=== PATIENT | female | born 1985 | race Hispanic/Latino ===

== ENCOUNTER 2018-02-04 23:13 | Emergency (ER) | payer OTHER ==
[2018-02-04] MEDS ORDERED: ALBUTEROL 2.5 MG/3 ML NEB SOL ONE (23:26)
[2018-02-04] MEDS ORDERED: IPRATROPIUM BROM 0.5MG/2.5ML ONE (23:27)
[2018-02-04] MEDS ORDERED: MAGNESIUM SULFATE 1 gm IVPB 1 GM/100 ML BAG IV ONE (23:56)
[2018-02-05 01:37] LABS: Absolute Lymphocytes (CBC) 3.8 K/uL (0.7-4.9); Absolute Monocytes 0.9 K/uL (0.1-1.3); Absolute Neutrophil 4.8 K/uL (1.8-8.0); Basophils % 0.5 % (0-1.3); Eosinophils % 0.5 % (0-4.4); Hematocrit 41.1 % (36.0-45.0); Lymphocytes % 39.5 % (15.3-44.8); MCH 31.6 pg (27.0-35.0); MCV 92.7 fL (80-100); MPV 11.2 fL (7.6-11.3); Monocytes % 9.2 % (3.3-12.3); RBC Red Blood Cell Count 4.44 M/uL (3.86-4.86)
[2018-02-05 01:46] LABS: Glucose Level 79 mg/dL (65-120)
[2018-02-05 01:52] LABS: ALT/SGPT 14 IU/L (10-60); AST/SGOT 20 IU/L (10-42); Albumin 4.4 g/dL (3.2-5.5); Alkaline Phosphatase 67 IU/L (42-121); BUN Blood Urea Nitrogen 11 mg/dL (6-20); Bilirubin Direct 0.1 mg/dL (0-0.2); Bilirubin Total 0.6 mg/dL (0.3-1.2); Magnesium 1.9 mg/dL (1.8-2.5); Protein, Total 7.4 g/dL (6.0-8.3)
[2018-02-05 01:58] LABS: Bicarbonate 26 mEq/L (21-31); Sodium Level 139 mEq/L (135-145)
[2018-02-05] MEDS ORDERED: HYDROCODONE/CHLORPHEN 5 ML/OSYR ONE (02:19)
[2018-02-05] MEDS ORDERED: POTASSIUM 25 MEQ EFFERV TAB ONE (02:19)
[2018-02-05 02:29] LABS: Urine Blood 3+ (NEG); Urine Glucose NEGATIVE (NEG); Urine Protein NEGATIVE (NEG); Urine Specific Gravity 1.015 (1.005-1.030); Urine pH 6.5 (5.0-7.0)
[2018-02-05] MEDS ORDERED: METHYLPREDNISOLONE 125 MG INJ ONE (03:28)
[2018-02-05] MEDS ORDERED: NA CHLORIDE 0.9% 1,000 ML ONE (03:28)
--- NOTE | 2018-02-05 04:21 | ER ---
Nurse's Notes [facility] Name: Rosmery Lowry Age: 32 yrs Sex: Female : 1985 Arrival Date: 02/04/2018 Time: 23:14 Bed 5 Private MD: Diagnosis: Cough;Shortness of breath Presentation: 02/04 23:32 Presenting complaint: Patient states: Patient states she has had a cough and shortness tl1 of breath for approx 2 weeks. Was recently prescribed prednisone, proair, and cough syrup with codeine. Pt states she feels short of breath when she coughs. Transition of care: patient was not received from another setting of care. Onset of symptoms was January 22, 2018. Risk Assessment: Do you want to hurt yourself or someone else? Patient reports no desire to harm self or others. Initial Sepsis Screen: Does the patient meet any 2 criteria? No. Patient's initial sepsis screen is negative. Does the patient have a suspected source of infection? No. Patient's initial sepsis screen is negative. Care prior to arrival: Medication(s) given:. 23:32 Method Of Arrival: Ambulatory tl1 23:32 Acuity: CARON 3 tl1 Triage Assessment: 02/05 04:17 Respiratory: Onset: The symptoms/episode began/occurred gradually. 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 - Social history:: Smoking status: Patient/guardian denies using tobacco, never smoked. - Ebola Screening: : Patient negative for fever greater than or equal to 101.5 degrees Fahrenheit, and additional compatible Ebola Virus Disease symptoms Patient denies exposure to infectious person Patient denies travel to an Ebola-affected area in the 21 days before illness onset. Screenin/11 04:16 Abuse screen: Denies threats or abuse. Denies injuries from another. Nutritional tl2 screening: No deficits noted. Tuberculosis screening: No symptoms or risk factors identified. Fall Risk IV access (20 points). Assessment: 00:01 General: Appears in no apparent distress. Behavior is calm, cooperative, appropriate tl1 for age. Pain: Denies pain. Neuro: Level of Consciousness is awake, alert, obeys commands, Oriented to person, place, time, situation. Cardiovascular: Denies chest pain, Rhythm is regular. Respiratory: Reports shortness of breath on exertion with cough cough that is productive, Airway is patent Trachea midline Respiratory effort is even, unlabored, Breath sounds with wheezes bilaterally. the patient has mild shortness of breath. GI: Abdomen is flat, Bowel sounds present X 4 quads. Abd is soft and non tender X 4 quads. Patient currently denies abdominal pain. : No signs and/or symptoms were reported regarding the genitourinary system. EENT: No signs and/or symptoms were reported regarding the EENT system. Derm: No signs and/or symptoms reported regarding the dermatologic system. 04:16 Reassessment: Patient and/or family updated on plan of care and expected duration. Pain tl2 level reassessed. Patient is alert, oriented x 3, equal unlabored respirations, skin warm/dry/pink. Patient states feeling better. Patient states symptoms have improved. Respiratory: Reports cough that is persistent Airway is patent Trachea midline Respiratory effort is even, unlabored, Breath sounds are clear bilaterally. Vital Signs: 02/04 23:26 BP 119 / 90; Pulse 91; Resp 20; Temp 98.7; Pulse Ox 98% on R/A; Weight 52.16 kg (R); mt Height 5 ft. 2 in. (157.48 cm) (R); 02/05 00:09 BP 111 / 97; Pulse 110; Resp 20; Pulse Ox 100% on R/A; mt 00:32 BP 105 / 53; Pulse 100; Resp 17; Pulse Ox 99% on R/A; Pain 0/10; tl1 01:04 BP 102 / 56; Pulse 84; Resp 18; Pulse Ox 100% on R/A; tl2 01:51 BP 93 / 57; Pulse 72; Resp 18; Pulse Ox 99% on R/A; mt 02:22 BP 122 / 81; Pulse 68; Resp 20; Pulse Ox 99% on R/A; Pain 0/10; tl1 03:10 BP 98 / 56; Pulse 79; Resp 16; Pulse Ox 100% on R/A; Pain 0/10; tl1 04:20 BP 108 / 67; Pulse 77; Resp 16; Temp 98.6; Pulse Ox 98% on R/A; Pain 0/10; tl2 02/04 23:26 Body Mass Index 21.03 (52.16 kg, 157.48 cm) mn ED Course: 02/04 23:14 Patient arrived in ED. am2 23:21 Joaquin Thornton PA is PHCP. cp 23:21 Claudio Todd MD is Attending Physician. cp 23:30 Inserted saline lock: 22 gauge in right antecubital area, using aseptic technique. tl1 Blood collected. 23:32 Mary Jones, DOMINIK is Primary Nurse. tl1 23:35 Triage completed. tl1 23:36 Arm band placed on right wrist. EKG completed in triage. Results shown to MD. tl1 23:48 X-ray completed. Portable x-ray completed in exam room. Patient tolerated procedure kw well. 23:49 XRAY Chest (1 view) In Process Unspecified. EDMS 02/05 00:00 Patient has correct armband on for positive identification. Placed in gown. Bed in low tl2 position. Call light in reach. Side rails up X 1. Adult w/ patient. 00:03 No provider procedures requiring assistance completed. tl1 03:26 Robb Gómez MD is Referral Physician. cp 04:08 CT Chest For PE Angio: elevated d-dimer, back pain In Process Unspecified. EDMS 04:17 CT completed. Patient tolerated procedure well. Patient moved to CT via wheelchair. Patient moved back from CT. 04:17 IV discontinued, intact, bleeding controlled, No redness/swelling at site. Pressure tl2 dressing applied. Administered Medications: 02/04 23:32 Drug: Albuterol - atroVENT (3:1) (2.5 mg - 0.5 mg) 3 ml Route: Nebulizer; tl1 02/05 04:19 Follow up: Response: No adverse reaction; Marked relief of symptoms tl2 00:01 Drug: Magnesium Sulfate 1 grams Route: IVPB; Infused Over: 1 hrs; Site: right tl1 antecubital; 03:30 Follow up: IV Status: Completed infusion tl2 02:21 Drug: Potassium Effervescent Tablet 50 mEq Route: PO; tl1 04:19 Follow up: Response: No adverse reaction; No change in condition tl2 02:21 Drug: Tussionex Pennkinetic ER 5 ml Route: PO; tl1 04:19 Follow up: Response: No adverse reaction; Marked relief of symptoms tl2 03:57 Drug: SOLU-Medrol 80 mg Route: IVP; Site: right antecubital; tl1 04:18 Follow up: Response: No adverse reaction; Marked relief of symptoms tl2 03:57 Drug: NS 0.9% 1000 ml Route: IV; Rate: 1 bolus; Site: right antecubital; tl1 04:18 Follow up: IV Status: Completed infusion tl2 Outcome: 03:26 Discharge ordered by MD. cp 04:17 Discharged to home ambulatory, with family. tl2 04:17 Condition: improved 04:17 Discharge instructions given to patient, family, Instructed on discharge instructions, follow up and referral plans. medication usage, Demonstrated understanding of instructions, follow-up care, medications, Prescriptions given X 4. 04:20 Patient left the ED. tl2 Signatures: Dispatcher [employer] EDMS Eliseo Albrecht Kimberlee kw Lasagna, Tonya, RN RN tl1 Joaquin Thornton PA PA cp Knox, Taylor, RN RN tl2 Arabella Bunch Moriah mt
--- NOTE | 2018-02-05 04:22 | EDPHYS ---
Physician Documentation [facility] Name: Rosmery Lowry Age: 32 yrs Sex: Female : 1985 Arrival Date: 02/04/2018 Time: 23:14 Bed 5 Private MD: ED Physician Claudio Todd HPI: 02/04 23:32 This 32 yrs old Female presents to ER via Unassigned with complaints of Cough, cp Breathing Difficulty. 23:32 The patient or guardian reports cough, that is constant, difficulty breathing. cp 23:32 Onset: The symptoms/episode began/occurred 2 week(s) ago. Severity of symptoms: in the cp emergency department the symptoms are actually worse, moderately. Associated signs and symptoms: Pertinent positives: back pain, Pertinent negatives: fever, sore throat, vomiting. 23:34 The patient has been recently seen at an urgent care, last week, for similar cp complaints, prescribed inhaler, oral steroids, and cough syrup. 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 - Social history:: Smoking status: Patient/guardian denies using tobacco, never smoked. - Ebola Screening: : Patient negative for fever greater than or equal to 101.5 degrees Fahrenheit, and additional compatible Ebola Virus Disease symptoms Patient denies exposure to infectious person Patient denies travel to an Ebola-affected area in the 21 days before illness onset. ROS: 23:35 Constitutional: Negative for body aches, chills, fever, poor PO intake. cp 23:35 Eyes: Negative for injury, pain, redness, and discharge. cp 23:35 ENT: Negative for drainage from ear(s), ear pain, sore throat, difficulty swallowing, difficulty handling secretions. 23:35 Neck: Negative for pain with movement, pain at rest, stiffness, tenderness. 23:35 Cardiovascular: Negative for edema, palpitations. 23:35 Respiratory: Positive for cough, "sounds productive", shortness of breath, Negative for hemoptysis. 23:35 Abdomen/GI: Negative for abdominal pain, nausea, vomiting, and diarrhea, black/tarry stool, rectal bleeding. 23:35 Back: Positive for pain at rest. 23:35 Skin: Negative for cellulitis, diaphoresis, rash. 23:35 Neuro: Negative for altered mental status, headache, syncope, near syncope, weakness. 23:35 All other systems are negative. Exam: 23:40 Constitutional: The patient appears in no acute distress, alert, awake, cp non-diaphoretic, non-toxic, well developed, well nourished. 23:40 Head/Face: Normocephalic, atraumatic. Eyes: Pupils equal round and reactive to light, cp extra-ocular motions intact. Lids and lashes normal. Conjunctiva and sclera are non-icteric and not injected. Cornea within normal limits. Periorbital areas with no swelling, redness, or edema. 23:40 ENT: External ear(s): are unremarkable, Ear canal(s): are normal, clear, TM's: dullness, bilaterally, Nose: is normal, Mouth: Lips: moist, Oral mucosa: pink and intact, moist, Posterior pharynx: is normal, airway is patent, no erythema, no exudate. 23:40 Neck: ROM/movement: is normal, is supple, without pain, no range of motions limitations, no meningismus, no nuchal rigidity, Lymph nodes: no appreciated lymphadenopathy. 23:40 Chest/axilla: Inspection: normal, Palpation: is normal, no crepitus, no tenderness. 23:40 Cardiovascular: Rate: normal, Rhythm: regular, Heart sounds: murmur, not appreciated, rub, not appreciated, gallop, not appreciated, Edema: is not appreciated, JVD: is not appreciated. 23:40 Respiratory: the patient does not display signs of respiratory distress, Respirations: labored breathing, that is mild, splinting, is not noted, Breath sounds: bronchial sounds, that are moderate, are heard diffusely, decreased breath sounds, that are mild, throughout, stridor, is not appreciated, wheezing: that is mild, is heard diffusely. 23:40 Abdomen/GI: Inspection: abdomen appears normal, Bowel sounds: active, all quadrants, Palpation: abdomen is soft and non-tender, in all quadrants, rebound tenderness, is not appreciated, voluntary guarding, is not appreciated, involuntary guarding, is not appreciated. 23:40 Back: pain, that is mild, of the diffuse, ROM is normal. 23:40 Musculoskeletal/extremity: Exam is negative for bony tenderness, calf tenderness, injury. 23:40 Skin: cellulitis, is not appreciated, no rash present. 23:40 Neuro: Orientation: to person, place \\T\\ time. Mentation: lucid, able to follow commands, Cerebellar function: is grossly normal, Motor: moves all fours, strength is normal, Sensation: is normal, Gait: is steady. 23:42 ECG was reviewed by the Attending Physician. Vital Signs: 23:26 BP 119 / 90; Pulse 91; Resp 20; Temp 98.7; Pulse Ox 98% on R/A; Weight 52.16 kg (R); mt Height 5 ft. 2 in. (157.48 cm) (R); 02/05 00:09 BP 111 / 97; Pulse 110; Resp 20; Pulse Ox 100% on R/A; mt 00:32 BP 105 / 53; Pulse 100; Resp 17; Pulse Ox 99% on R/A; Pain 0/10; tl1 01:04 BP 102 / 56; Pulse 84; Resp 18; Pulse Ox 100% on R/A; tl2 01:51 BP 93 / 57; Pulse 72; Resp 18; Pulse Ox 99% on R/A; mt 02:22 BP 122 / 81; Pulse 68; Resp 20; Pulse Ox 99% on R/A; Pain 0/10; tl1 03:10 BP 98 / 56; Pulse 79; Resp 16; Pulse Ox 100% on R/A; Pain 0/10; tl1 04:20 BP 108 / 67; Pulse 77; Resp 16; Temp 98.6; Pulse Ox 98% on R/A; Pain 0/10; tl2 02/04 23:26 Body Mass Index 21.03 (52.16 kg, 157.48 cm) de MDM: 02/04 23:24 Patient medically screened. cp 02/05 00:00 Differential Diagnosis: Bronchitis Influenza Otitis Media Viral Syndrome Pneumonia cp Other pulmonary embolism, pulmonary edema. 03:25 Data reviewed: vital signs, nurses notes, lab test result(s), EKG, radiologic studies, cp CT scan, and as a result, I will discharge patient. 03:25 Test interpretation: by ED physician or midlevel provider: ECG. 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 03:25 ED course: VSS. Cough and shortness of breath symptoms improved. Will discharge to home cp for continued monitroing. 02/04 23:26 Order name: Basic Metabolic Panel; Complete Time: 01:58 02/05 01:59 Interpretation: Normal except: K 3.0. cp 02/04 23:26 Order name: BNP; Complete Time: :58 cp 02/04 23:26 Order name: CBC with Diff; Complete Time: :58 cp 02/04 23:26 Order name: LFT's; Complete Time: :58 cp 02/04 23:26 Order name: Magnesium; Complete Time: :58 cp 02/04 23:26 Order name: Troponin (emerg Dept Use Only); Complete Time: 01:58 cp 02/04 23:26 Order name: XRAY Chest (1 view) 02/04 23:26 Order name: D-Dimer; Complete Time: :58 cp 02/05 02:01 Order name: CT Chest For PE Angio: elevated d-dimer, back pain 02/05 02:12 Order name: Urine Dipstick--Ancillary (enter results); Complete Time: 02:35 2 02/05 02:35 Interpretation: Normal except: UBLD 3+; UESTR TRACE. cp 02/05 02:12 Order name: Urine --Ancillary (enter results); Complete Time: 02:35 2 02/04 23:26 Order name: Urine Test (obtain specimen); Complete Time: 01:59 cp 02/04 23:26 Order name: EKG; Complete Time: 23:26 cp 02/04 23:26 Order name: Cardiac monitoring; Complete Time: 23:34 cp 02/04 23:26 Order name: EKG - Nurse/Tech; Complete Time: 23:34 cp 02/04 23:26 Order name: IV Saline Lock; Complete Time: 23:34 cp 02/04 23:26 Order name: Labs collected and sent; Complete Time: 23:34 cp 02/04 23:26 Order name: O2 Per Protocol; Complete Time: 23:34 cp 02/04 23:26 Order name: O2 Sat Monitoring; Complete Time: 23:34 cp 02/04 23:26 Order name: Urine Dipstick-Ancillary (obtain specimen); Complete Time: 01:59 cp EC/10 23:42 Rate is 66 beats/min. Rhythm is regular. [place] interval is shortened at 110 msec. QRS cp interval is normal. QT interval is normal. No ST changes noted. Interpreted by me. Reviewed by me. Administered Medications: 23:32 Drug: Albuterol - atroVENT (3:1) (2.5 mg - 0.5 mg) 3 ml Route: Nebulizer; tl1 02/05 04:19 Follow up: Response: No adverse reaction; Marked relief of symptoms tl2 00:01 Drug: Magnesium Sulfate 1 grams Route: IVPB; Infused Over: 1 hrs; Site: right tl1 antecubital; 03:30 Follow up: IV Status: Completed infusion tl2 02:21 Drug: Potassium Effervescent Tablet 50 mEq Route: PO; tl1 04:19 Follow up: Response: No adverse reaction; No change in condition tl2 02:21 Drug: Tussionex Pennkinetic ER 5 ml Route: PO; tl1 04:19 Follow up: Response: No adverse reaction; Marked relief of symptoms tl2 03:57 Drug: SOLU-Medrol 80 mg Route: IVP; Site: right antecubital; tl1 04:18 Follow up: Response: No adverse reaction; Marked relief of symptoms tl2 03:57 Drug: NS 0.9% 1000 ml Route: IV; Rate: 1 bolus; Site: right antecubital; tl1 04:18 Follow up: IV Status: Completed infusion tl2 Disposition: 04:09 Co-signature as Attending Physician, Claudio Todd MD. pkl Disposition: 02/05/18 03:26 Discharged to Home. Impression: Cough, Shortness of breath. - Condition is Stable. - Discharge Instructions: Cool Mist Vaporizers, Cough, Adult. - Prescriptions for Medrol (Ranulfo) 4 mg Oral Tablets, Dose Pack - take 1 tablet by ORAL route as directed - follow package instructions; 1 packet. Albuterol Sulfate 90 mcg/actuation - inhale 1-2 puff by INHALATION route every 4-6 hours; 1 Inhaler. Potassium Chloride 10 mEq Oral Capsule, Sustained Release - take 1 tablet by ORAL route every 12 hours for 3 days; 6 tablet. Zithromax Z- Ranulfo 250 mg Oral Tablet - take 1 tablet by ORAL route as directed for 5 days Day 1 - take two (2) tablets one time. Day 2, 3, 4 , 5 take one (1) tablet once daily.; 6 tablet. - Work release form, Medication Reconciliation Form, Thank You Letter, Antibiotic Education, Prescription Opioid Use form. - Follow up: Robb Gómez MD; When: 1 - 2 days; Reason: Recheck today's complaints. - Problem is new. - Symptoms have improved. Signatures: Dispatcher [employer] EDMS Claudio Todd MD MD pkl Lasagna, Tonya, RN RN tl1 Joaquin Thornton PA PA cp Knox, Taylor, RN RN tl2 Corrections: (The following items were deleted from the chart) 01:59 01:59 Normal except. cp cp 04:20 03:26 02/05/2018 03:26 Discharged to Home. Impression: Cough; Shortness of breath. tl2 Condition is Stable. Forms are Medication Reconciliation Form, Thank You Letter, Antibiotic Education, Prescription Opioid Use. Follow up: Robb Gómez; When: 1 - 2 days; Reason: Recheck today's complaints. Problem is new. Symptoms have improved. cp 02/06 00:33 02/04 23:34 The patient has been recently seen at an urgent care, last week, for cp similar complaints, prescribed cough medicine, oral steroids, cp
--- NOTE | 2018-02-05 06:29 | EKG ---
Test Date: 2018-02-04 Test Time: 23:35:16 Head Of Measurement [employer] Insights: PARVIN MEASUREMENT RESULTS: Intervals: Rate: 66 IL: 110 QRSD: 86 QT: 392 QTc: 410 [place]: P: 67 IL: 110 QRS: 43 T: 33 INTERPRETIVE STATEMENTS: Sinus rhythm with short [place] Otherwise normal ECG No previous ECG available for comparison Electronically Signed On 02-05-18 06:28:05 CDT by Miguel Cuellar
--- NOTE | 2018-02-05 08:13 | RAD REPORT ---
EXAM DESCRIPTION: Reji Single View02/04/2018 11:49 pm CLINICAL HISTORY: Cough COMPARISON: None FINDINGS: The lungs appear clear of acute infiltrate. The heart is probably upper limits normal siz e IMPRESSION: No acute abnormalities displayed
--- NOTE | 2018-02-05 08:29 | RAD REPORT ---
EXAM DESCRIPTION: CT - Chest For Pe Angio - 02/05/2018 4:32 am CLINICAL HISTORY: Cough for 1 week COMPARISON: None. TECHNIQUE: Dynamically enhanced axial 3 mm thick images of the chest were obtained during administra tion of <100> mL Isovue 370 IV contrast. Coronal and oblique reconstruction images were generated and reviewed. Exam utilizes a protocol for optimal evaluation of pulmonary arterial tree. A preliminary report was generated by [employer] radiologic and reviewed prior to dictation All CT scans are performed using dose optimization technique as appropriate and may include automated exposure control or mA/KV adjustment according to patient size. FINDINGS: A pulmonary embolus is not seen. A thoracic aortic aneurysm is not noted. A pleural effusion is not seen. A pericardial effusion is not seen. A lung consolidation is not present. IMPRESSION: Negative for a pulmonary embolism.
== END 2018-02-05 04:20 | disposition home or self-care (01) ==
LOC: ER 23:13
DX: R06.02 Shortness of breath (principal)
CPT/HCPCS: 36415; 71045; 71275; 80048; 80076; 81003; 81025; 83735; 83880; 84484; 85025; 85379; 93005; 94640; 96361; 96365; 96366; 96375; 99285; J2930; J3475; J7030; Q9967

== ENCOUNTER 2018-02-23 18:45 | Emergency (ER) | payer OTHER ==
--- NOTE | 2018-02-23 20:43 | RAD REPORT ---
EXAM DESCRIPTION: Reji Goodman (2 Views)02/23/2018 8:24 pm CLINICAL HISTORY: Cough COMPARISON: February 04, 2018 FINDINGS: The lungs appear clear of acute infiltrate. The heart is normal size IMPRESSION: No acute abnormalities displayed
--- NOTE | 2018-02-23 21:05 | ER ---
Nurse's Notes [facility] Name: Rosmery Lowry Age: 32 yrs Sex: Female : 1985 Arrival Date: 02/23/2018 Time: 18:49 Bed 13 Private MD: Luis Green Diagnosis: Acute bronchitis Presentation: 02/23 18:51 Presenting complaint: Patient states: was seen about a week ago, given prescriptions sg and dc to home, reports symptoms not getting better, reports vomiting with extreme episodes of cough, productive sputum is more white and clear now but occasionally it is yellow. Transition of care: patient was not received from another setting of care. Onset of symptoms was February 23, 2018. Risk Assessment: Do you want to hurt yourself or someone else? Patient reports no desire to harm self or others. Initial Sepsis Screen: Does the patient meet any 2 criteria? No. Patient's initial sepsis screen is negative. Does the patient have a suspected source of infection? No. Patient's initial sepsis screen is negative. Care prior to arrival: None. 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 - Social history:: Smoking status: Patient/guardian denies using tobacco. - Ebola Screening: : Patient negative for fever greater than or equal to 101.5 degrees Fahrenheit, and additional compatible Ebola Virus Disease symptoms Patient denies exposure to infectious person Patient denies travel to an Ebola-affected area in the 21 days before illness onset No symptoms or risks identified at this time. Screenin:26 Abuse screen: Denies threats or abuse. Denies injuries from another. Nutritional bp screening: No deficits noted. Tuberculosis screening: No symptoms or risk factors identified. Fall Risk None identified. Assessment: 19:00 General: Appears in no apparent distress. comfortable, slender, Behavior is calm, bp cooperative, appropriate for age. Pain: Complains of pain in THROAT. Neuro: Level of Consciousness is awake, alert, obeys commands, Oriented to person, place, time, situation, Appropriate for age. Cardiovascular: No deficits noted. Respiratory: Airway is patent Respiratory effort is even, unlabored, Respiratory pattern is regular, symmetrical. GI: No signs and/or symptoms were reported involving the gastrointestinal system. : No signs and/or symptoms were reported regarding the genitourinary system. EENT: Throat is reddened bilaterally with gag reflex present. Derm: No deficits noted. Musculoskeletal: Circulation, motion, and sensation intact. Range of motion: intact in all extremities. 19:00 Respiratory: Breath sounds are clear bilaterally. bp 21:13 Reassessment: PT D/C HOME AMBULATORY WITH FAMILY, DX WITH ACUTE BRONCHITIS. bp Vital Signs: 18:53 Pulse 98; Resp 17 S; Temp 98.6; Pulse Ox 98% on R/A; Weight 49.9 kg; Height 5 ft. 2 in. sg (157.48 cm); Pain 7/10; 18:55 BP 124 / 69; sg 21:22 BP 106 / 47; Pulse 56; Resp 16; Temp 98; Pulse Ox 100% ; bp 18:53 Body Mass Index 20.12 (49.90 kg, 157.48 cm) sg ED Course: 18:49 Patient arrived in ED. sb2 18:50 Luis Green MD is Private Physician. sb2 18:52 Triage completed. sg 18:53 Arm band placed on. sg 19:06 Jameson Lazar, RN is Primary Nurse. bp 19:07 Josesito Howard PA is PHCP. jmm 19:08 Jose L Fay MD is Attending Physician. jmm 19:27 Patient has correct armband on for positive identification. Bed in low position. Call bp light in reach. Side rails up X2. Adult w/ patient. 20:06 Strep Sent. bp 20:17 Patient moved to radiology via wheelchair. bb2 20:21 X-ray completed. Portable x-ray completed in exam room. Patient tolerated procedure bb2 well. 20:22 Chest Pa And Lat (2 Views) XRAY In Process Unspecified. EDMS 21:04 Luis Green MD is Referral Physician. jmm 21:14 No provider procedures requiring assistance completed. Patient did not have IV access bp during this emergency room visit. Administered Medications: No medications were administered Outcome: 21:04 Discharge ordered by . jmm 21:14 Discharged to home ambulatory, with family. bp 21:14 Condition: stable 21:14 Discharge instructions given to patient, Instructed on discharge instructions, follow up and referral plans. medication usage, Demonstrated understanding of instructions, follow-up care, medications, Prescriptions given X 1. 21:23 Patient left the ED. bp Signatures: Dispatcher [employer] EDGoyo Santiago, RN RN sg Josesito Howard PA PA jmm Peltier, Brian, RN RN bp Haley Joy bb2 Diya Chance sb2
--- NOTE | 2018-02-23 21:05 | EDPHYS ---
Physician Documentation [facility] Name: Rosmery Lowry Age: 32 yrs Sex: Female : 1985 Arrival Date: 02/23/2018 Time: 18:49 Bed 13 Private MD: Luis Green ED Physician Jose L Fay HPI: 02/23 19:46 This 32 yrs old Female presents to ER via Ambulatory with complaints of Cough, jmm Sore Throat. 19:46 The patient or guardian reports cough, congestion, sore throat. Onset: The jmm symptoms/episode began/occurred gradually, 4.5 week(s) ago. 19:48 This is a 32 year old female with no chronic medical conditions that presents to the ED jmm with cough, congestion, sore throat beginning approx 4.5 weeks ago. Patient states she recently finished a course of azithromycin with no relief. Patient denies hemoptysis, denies fever. . 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 - Social history:: Smoking status: Patient/guardian denies using tobacco. - Ebola Screening: : Patient negative for fever greater than or equal to 101.5 degrees Fahrenheit, and additional compatible Ebola Virus Disease symptoms Patient denies exposure to infectious person Patient denies travel to an Ebola-affected area in the 21 days before illness onset No symptoms or risks identified at this time. ROS: 19:48 Constitutional: Negative for fever, chills, and weight loss, Cardiovascular: Negative jmm for chest pain, palpitations, and edema. 19:48 Abdomen/GI: Negative for abdominal pain, nausea, vomiting, diarrhea, and constipation, Back: Negative for injury and pain, : Negative for injury, bleeding, discharge, and swelling, MS/Extremity: Negative for injury and deformity, Skin: Negative for injury, rash, and discoloration, Neuro: Negative for headache, weakness, numbness, tingling, and seizure. 19:48 ENT: Positive for sore throat. 19:48 Respiratory: Positive for cough. 19:48 All other systems are negative. Exam: 19:48 Head/Face: atraumatic. Chest/axilla: Normal chest wall appearance and motion. jmm Nontender with no deformity. No lesions are appreciated. Cardiovascular: Regular rate and rhythm. No gallops, murmurs, or rubs. Full/Equal distal pulses. Respiratory: Lungs have equal breath sounds bilaterally, clear to auscultation. 19:48 Constitutional: The patient appears in no acute distress, alert, awake. 19:48 ENT: Posterior pharynx: Uvula: midline, erythema, that is mild. 19:48 Skin: Appearance: Color: normal in color. 19:48 Neuro: Orientation: is normal, Mentation: is normal, Memory: is normal. Vital Signs: 18:53 Pulse 98; Resp 17 S; Temp 98.6; Pulse Ox 98% on R/A; Weight 49.9 kg; Height 5 ft. 2 in. sg (157.48 cm); Pain 7/10; 18:55 BP 124 / 69; sg 21:22 BP 106 / 47; Pulse 56; Resp 16; Temp 98; Pulse Ox 100% ; bp 18:53 Body Mass Index 20.12 (49.90 kg, 157.48 cm) MDM: 19:35 Patient medically screened. [facility] 21:00 Data reviewed: vital signs, nurses notes. [facility] 21:00 Counseling: I had a detailed discussion with the patient and/or guardian regarding: the [facility] historical points, exam findings, and any diagnostic results supporting the discharge/admit diagnosis, lab results, radiology results, the need for outpatient follow up, to return to the emergency department if symptoms worsen or persist or if there are any questions or concerns that arise at home. 02/23 19:43 Order name: Strep [facility] 02/23 19:44 Order name: Group A Streptococcus Rapid Sc; Complete Time: 20:29 [facility] 02/23 19:43 Order name: Chest Pa And Lat (2 Views) XRAY; Complete Time: 20:58 [facility] 02/23 20:26 Order name: Throat Culture [facility] Administered Medications: No medications were administered Disposition: 02/24 11:10 Co-signature as Attending Physician, Jose L Fay MD I agree with the assessment and wa plan of care. Disposition: 02/23/18 21:04 Discharged to Home. Impression: Acute bronchitis. - Condition is Stable. - Discharge Instructions: Acute Bronchitis. - Prescriptions for Tessalon Perles 100 mg Oral Capsule - take 1 capsule by ORAL route every 8 hours As needed; 15 capsule. - Medication Reconciliation Form, Thank You Letter, Antibiotic Education, Prescription Opioid Use form. - Follow up: Luis Green MD; When: 2 - 3 days; Reason: Continuance of care. Signatures: Dispatcher [employer] EDGoyo Santiago RN RN sg Josesito Howard PA PA jmm Appiah, William, MD MD wa Peltier, Brian RN RN bp Corrections: (The following items were deleted from the chart) 02/23 21:23 21:04 02/23/2018 21:04 Discharged to Home. Impression: Acute bronchitis. Condition is bp Stable. Forms are Medication Reconciliation Form, Thank You Letter, Antibiotic Education, Prescription Opioid Use. Follow up: Luis Green; When: 2 - 3 days; Reason: Continuance of care. brittany
== END 2018-02-23 21:23 | disposition home or self-care (01) ==
LOC: ER 18:45
DX: J20.9 Acute bronchitis, unspecified (principal)
CPT/HCPCS: 71046; 87070; 87081; 99283

== ENCOUNTER 2024-09-24 16:17 | Emergency (ER) | payer OTHER ==
[2024-09-24 17:08] LABS: Absolute Lymphocytes (CBC) 0.5 K/uL (0.7-4.9); Absolute Monocytes 0.6 K/uL (0.1-1.3); Absolute Neutrophil 5.4 K/uL (1.8-8.0); Basophils % 0.1 % (0-1.3); Eosinophils % 0.1 % (0-4.4); Hematocrit 40.1 % (36.0-45.0); Lymphocytes % 7.5 % (15.3-44.8); MCV 91.4 fL (80-100); MPV 10.1 fL (7.6-11.3); Monocytes % 9.9 % (3.3-12.3); Neutrophils % 82.4 % (41.7-73.7); Nucleated Red Blood Cells % 0.1 % (0-0); Platelets 205 thou/uL (152-406); RBC Red Blood Cell Count 4.39 M/uL (3.86-4.86); Red Cell Distribution Width 12.8 % (12.1-15.2)
[2024-09-24 17:25] LABS: ALT/SGPT 18 U/L (13-56); Albumin/Globulin Ratio 1.1 (1.1-1.8); Alkaline Phosphatase 67 U/L (45-117); Anion Gap 9.3 mEq/L (5.0-15.0); BUN Blood Urea Nitrogen 7 mg/dL (7-18); Bicarbonate 25 mEq/L (21-32); Bilirubin Total 0.5 mg/dL (0.2-1.0); Globulin 3.6 g/dL (2.3-3.5); Glomerular Filtration Rate 88 ml/min (=/>90); Glucose Level 104 mg/dL (74-106); Lipase 18 U/L (13-75); Potassium 3.3 mEq/L (3.5-5.1); Protein, Total 7.6 g/dL (6.4-8.2); Sodium Level 135 mEq/L (136-145)
[2024-09-24 17:30] LABS: SARS-CoV-2 Antigen CONTROL BLUE LINE VIS/BG OK; SARS-CoV-2 Antigen Rapid Res Negative (Negative)
[2024-09-24 17:41] LABS: Specific Gravity 1.008 (1.005-1.030); Sqamous Epithelial <5 /HPF (None Seen); Urine Bacteria None Seen /HPF (<20); Urine Bilirubin NEGATIVE (Negative); Urine Blood 1+ (Negative); Urine Clarity Clear (Clear); Urine Color Colorless (Yellow); Urine Culture Reflex Order NOT NEEDED; Urine Glucose NEGATIVE (Negative); Urine Ketones 1+ (Negative); Urine Microscopic Reflex YN ORDER UMIC; Urine Mucus Slight /HPF (None Seen); Urine Nitrite NEGATIVE (Negative); Urine Protein NEGATIVE (Negative); Urine RBC <5 /HPF (None Seen); Urine Urobilinogen Normal (Normal); Urine WBC <5 /HPF (<5); Urine Yeast (Budding) Trace /HPF (None Seen); Urine pH 6.5 (5.0-7.0)
[2024-09-24 17:43] LABS: AST/SGOT < 10 U/L (15-37)
[2024-09-24] MEDS ORDERED: NA CHLORIDE 0.9% 1,000 ML ONE (17:53)
--- NOTE | 2024-09-24 19:50 | ER ---
Nurse's Notes [facility] Name: Rosmery Pichardo Age: 39 yrs Sex: Female : 1985 Arrival Date: 09/24/2024 Time: 16:17 Bed 14 Private MD: Diagnosis: Acute upper respiratory infection, unspecified Presentation: 09/24 16:31 Chief complaint: Patient states: she has been having lower back pain, cough, headache, ap3 congestion, fevers and pain in her left lower abdomen when she coughs since Monday09/22/24. Coronavirus screen: Client presents with at least one sign or symptom that may indicate coronavirus-19. Ebola Screen: No symptoms or risks identified at this time. Initial Sepsis Screen: Does the patient meet any 2 criteria? HR > 90 bpm. Does the patient have a suspected source of infection? No. Patient's initial sepsis screen is negative. Risk Assessment: Do you want to hurt yourself or someone else? Patient reports no desire to harm self or others. Onset of symptoms was September 22, 2024. 16:31 Method Of Arrival: Ambulatory ap3 16:31 Acuity: CARON 3 ap3 Triage Assessment: 16:34 General: Appears in no apparent distress. Behavior is calm, cooperative, appropriate ap3 for age, Reports chills for fever for feeling ill for fatigue for. Pain: Complains of pain in head, back and abdomen. Neuro: Level of Consciousness is awake, alert, obeys commands, Oriented to person, place, time, situation, Appropriate for age. Cardiovascular: Patient's skin is warm and dry. Respiratory: Reports cough that is Airway is patent Respiratory effort is even, unlabored, Respiratory pattern is regular, symmetrical. 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 - Infectious Disease History:: Denies. - Social history:: Smoking status: Patient denies any tobacco usage or history of. Screenin:34 [facility] ED Fall Risk Assessment (Adult) History of falling in the last 3 months, ap3 including since admission No falls in past 3 months (0 pts) Confusion or Disorientation No (0 pts) Intoxicated or Sedated No (0 pts) Impaired Gait No (0 pts) Mobility Assist Device Used No (0 pt) Altered Elimination No (0 pt) Score/Fall Risk Level 0 - 2 = Low Risk Oriented to surroundings, Maintained a safe environment, Educated pt \T\ family on fall prevention, incl call for assistance when getting out of bed, Assessed \T\ reinforced patient's understanding of fall precautions, Hourly rounding (assess needs \T\ fall precautionary measures) done, Used ambulatory aids as needed (educated on \T\ assisted with), Used gait belt as appropriate. Abuse screen: Denies threats or abuse. Nutritional screening: No deficits noted. Tuberculosis screening: No symptoms or risk factors identified. Assessment: 18:06 General: Appears in no apparent distress. comfortable, Behavior is calm, cooperative, ph appropriate for age. Pain: Complains of pain in back and head. Neuro: Level of Consciousness is awake, alert, obeys commands, Oriented to person, place, time, situation. Cardiovascular: Capillary refill < 3 seconds in bilateral fingers Patient's skin is warm and dry. Respiratory: Airway is patent Respiratory effort is even, unlabored, Respiratory pattern is regular, symmetrical. Derm: Skin is pink, warm \T\ dry. 19:57 Reassessment: Patient appears in no apparent distress at this time. No changes from aa10 previously documented assessment. Patient and/or family updated on plan of care and expected duration. Pain level reassessed. Patient is alert, oriented x 3, equal unlabored respirations, skin warm/dry/pink. Vital Signs: 16:31 BP 114 / 78; Pulse 116; Resp 18; Temp 99.2(O); Pulse Ox 100% on R/A; Weight 58.97 kg; ap3 Height 5 ft. 2 in. ; Pain 6/10; 18:08 BP 112 / 80; Pulse 97; Resp 18; Pulse Ox 99% on R/A; ph 19:13 BP 147 / 86; Pulse 71; Resp 20 S; Temp 98.6; Pulse Ox 99% on R/A; aa10 19:58 BP 128 / 82; Pulse 70; Resp 20; Temp 99; Pulse Ox 99% on R/A; aa10 16:31 Body Mass Index 23.78 (58.97 kg, 157.48 cm) ap3 16:31 Pain Scale: Adult ap3 ED Course: 16:19 Patient arrived in ED. im 16:22 Maricruz Mayes [facility]C [facility] kb 16:22 Yoshi Foreman DO is Attending Physician. kb 16:33 Triage completed. ap3 16:34 Arm band placed on left wrist. ap3 16:51 SARS-COV-2 Antigen Rapid Sent. bc6 16:51 Flu Sent. bc6 16:51 CBC with Diff Sent. bc6 16:51 CMP Sent. bc6 16:51 Lipase Sent. bc6 16:51 Test, Urine Sent. bc6 16:52 Urinalysis w/ reflexes Sent. bc6 16:52 Initial lab(s) drawn, by wi, sent to lab. Urine collected: clean catch specimen, clear, bc6 COVID swab sent to lab. Flu and/or RSV swab sent to lab. Inserted saline lock: 20 gauge in left antecubital area, using aseptic technique. Blood collected. Flushed with 10 mL NS. 17:43 uLann Love, RN is Primary Nurse. ph 18:07 No provider procedures requiring assistance completed. ph 18:08 Patient has correct armband on for positive identification. Bed in low position. Call ph light in reach. Side rails up X 1. Pulse ox on. NIBP on. Door closed. Noise minimized. Warm blanket given. Pillow given. 19:57 Provided Education on: about plan of care. aa10 09/25 01:59 IV discontinued. aa10 Administered Medications: 09/24 17:59 Drug: NS 0.9% IV 1000 ml IV at 1 bolus Per protocol; to be given as a bolus over 60 ph minutes Route: IV; Rate: 1 bolus; Site: right antecubital; 19:56 Follow up: IV Status: Completed infusion aa10 19:57 Follow up: Response: No adverse reaction; Marked relief of symptoms aa10 Medication: 18:08 VIS not applicable for this client. ph Outcome: 19:49 Discharge ordered by . kb 20:03 Patient left the ED. aa10 09/25 01:58 Discharged to home ambulatory, aa10 Condition: good Discharge instructions given to patient, Instructed on discharge instructions, Signatures: Maricruz Mayes FNP-C FNP-Ckb Luann Love, RN RN ph rAabella Becker, RN RN ap3 Cherrie Arango 6 Lizbeth Berger Ayoku, RN RN aa10
--- NOTE | 2024-09-24 19:50 | EDPHYS ---
Physician Documentation [facility] Name: Rosmery Pichardo Age: 39 yrs Sex: Female : 1985 Arrival Date: 09/24/2024 Time: 16:17 Bed 14 Private MD: ED Physician Yoshi Foreman HPI: 09/24 19:51 This 39 yrs old Female presents to ER via Ambulatory with complaints of Low kb Back Pain, Flu Symptoms. 19:51 Patient is a 39-year-old female who presents for lower back pain, cough, headache, kb congestion, fever and pain in abdomen when she coughs for 3 days. . 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 - Infectious Disease History:: Denies. - Social history:: Smoking status: Patient denies any tobacco usage or history of. ROS: 19:50 Constitutional: As per HPI kb Exam: 19:50 Constitutional: This is a well developed, well nourished patient who is awake, alert, kb and in no acute distress. Head/Face: Normocephalic, atraumatic. ENT: Moist Mucous membranes Cardiovascular: Regular rate Respiratory: Respirations even and unlabored. No increased work of breathing. Talking in full sentences Abdomen/GI: Soft, non-tender. No distention Skin: Warm, dry with normal turgor. Normal color. MS/ Extremity: Pulses equal, no cyanosis. Neurovascular intact. Full, normal range of motion. Neuro: Awake and alert, GCS 15, oriented to person, place, time, and situation. Vital Signs: 16:31 BP 114 / 78; Pulse 116; Resp 18; Temp 99.2(O); Pulse Ox 100% on R/A; Weight 58.97 kg; ap3 Height 5 ft. 2 in. ; Pain 6/10; 18:08 BP 112 / 80; Pulse 97; Resp 18; Pulse Ox 99% on R/A; ph 19:13 BP 147 / 86; Pulse 71; Resp 20 S; Temp 98.6; Pulse Ox 99% on R/A; aa10 19:58 BP 128 / 82; Pulse 70; Resp 20; Temp 99; Pulse Ox 99% on R/A; aa10 16:31 Body Mass Index 23.78 (58.97 kg, 157.48 cm) ap3 16:31 Pain Scale: Adult ap3 MDM: 16:23 Medical Screening Exam initiated kb 19:50 Differential diagnosis: strain, UTI, flu, covid, uri. Data reviewed: vital signs, kb nurses notes. Counseling: I had a detailed discussion with the patient and/or guardian regarding the historical points, exam findings, and any diagnostic results supporting the discharge/admit diagnosis, lab results, radiology results, the need for outpatient follow up, a family practitioner, to return to the emergency department if symptoms worsen or persist or if there are any questions or concerns that arise at home. 09/24 16:33 Order name: CBC with Diff; Complete Time: 17:30 kb 09/24 16:33 Order name: CMP; Complete Time: 17:45 kb 09/24 16:33 Order name: Lipase; Complete Time: 17:45 kb 09/24 16:33 Order name: Test, Urine; Complete Time: 17:45 kb 09/24 16:33 Order name: Urinalysis w/ reflexes; Complete Time: 17:45 kb 09/24 16:33 Order name: Flu; Complete Time: 17:35 kb 09/24 16:33 Order name: SARS-COV-2 Antigen Rapid; Complete Time: 17:31 kb 09/24 16:33 Order name: IV Saline Lock; Complete Time: 16:51 kb 09/24 16:33 Order name: Labs collected and sent; Complete Time: 16:51 kb Administered Medications: 17:59 Drug: NS 0.9% IV 1000 ml IV at 1 bolus Per protocol; to be given as a bolus over 60 ph minutes Route: IV; Rate: 1 bolus; Site: right antecubital; 19:56 Follow up: IV Status: Completed infusion aa10 19:57 Follow up: Response: No adverse reaction; Marked relief of symptoms aa10 Disposition Summary: 09/24/24 19:49 Discharge Ordered Notes: Location: Home kb Condition: Stable kb Diagnosis - Acute upper respiratory infection, unspecified kb Followup: kb - With: Emergency Department - When: As needed - Reason: Worsening of condition Followup: kb - With: Private Physician - When: 2 - 3 days - Reason: Recheck today's complaints, Continuance of care, Re-evaluation by your physician Discharge Instructions: - Discharge Summary Sheet kb - Musculoskeletal Pain kb - Upper Respiratory Infection, Adult, [id number] kb Forms: - Medication Reconciliation Form kb - Antibiotic Education kb - Prescription Opioid Use kb - Patient Portal Instructions kb - Leadership Thank You Letter kb Signatures: Dispatcher [employer] EDMS Maricruz Mayes, MANAGER GAME-C MANAGER GAME-CkLuann Penaloza, RN RN ph Arabella Becker, RN RN ap3 [place] Lauren RN aa10 Corrections: (The following items were deleted from the chart) 16:34 16:34 CBC+H.LAB.BRZ ordered. EDMS EDMS 16:34 16:34 COMPREHENSIVE METABOLIC PANEL+C.LAB.BRZ ordered. EDMS EDMS 16:34 16:34 LIPASE+C.LAB.BRZ ordered. EDMS EDMS 16:34 16:34 Test, Urine+UC.LAB.BRZ ordered. EDMS EDMS 16:34 16:34 Urinalysis+U.LAB.BRZ ordered. EDMS EDMS 16:34 16:34 Influenza Screen (A \T\ B)+BA.LAB.BRZ ordered. EDMS EDMS 16:34 16:34 SARS-COV-2 Antigen Rapid+I.LAB.BRZ ordered. EDMS EDMS
[2024-09-25 05:43] VITALS: O2SAT 99
[2024-09-25 05:46] VITALS: BP 128/82; TEMP 99
== END 2024-09-24 20:03 | disposition home or self-care (01) ==
LOC: ER 16:17
DX: J06.9 Acute upper respiratory infection, unspecified (principal); Z11.52 Encounter for screening for COVID-19
CPT/HCPCS: 96361; 85025; 81001; 36415; 81025; 83690; 80053; 87804 ×2; 96360; 99284; 87811; J7030